=== PATIENT | female | born 1980 | race Caucasian/White ===

== ENCOUNTER → 2016-11-28 | Outpatient (CLI) | payer OTHER ==
[~2016-11-28] MED LIST: BENTYL20 MG DOB; KLONOPIN2 MG PO; PRILOSEC20 MG PO; RONDEC-DM SYRU120 ML PO
--- NOTE | ~2016-11-28 | MY29 ---
[facility] A Service of [facility] RADIOLOGY TEXT RESULTS PATIENT: RAHEL COFFEY LOCATION: [facility] : 82 UNIT #: [id number] AGE: [address]: Anat Schmidt MD SEX: F ORDER DR: [id number] [facility] [address] [place], [place] [address] [id number] O MR#: [id number] Acc #: [id number] NAME: RAHEL COFFEY : 1980 SEX: F STUDY DATE/TIME: 11/28/2016 13:05 UNIT: [facility] ROOM: STUDY DESCRIPTION: MY [facility] SCREENING W/ CAD BILAT Attending Physician: Anat Schmidt M.D. Referring Physician: Anat Schmidt M.D. Ordering Physician: Anat Schmidt M.D. Primary Care Physician: Anat Schmidt M.D. MEDICAL IMAGING REPORT This report is preliminary unless electronic signature is present EXAM Screening mammogram, 11/28. INDICATIONS 36-year-old with no personal history but a positive family history of breast cancer in her mother. No current complaints. FINDINGS Routine digital screening views of both breasts were obtained. Study is reviewed with an FDA-approved CAD device. This is a baseline study. Breast parenchyma shows scattered fibroglandular densities. No masses or suspicious microcalcifications are seen. Benign calcifications are present in both breasts. IMPRESSION Benign mammogram. Routine yearly screening recommended beginning at age 40 or sooner if clinically indicated. Patients over the age of 40 are entered into a reminder system with target due date for the next mammogram. BIRADS: 2 Benign finding. Dictated by... Giovanni Elias Jr., M.D. THIS IS AN ELECTRONICALLY VERIFIED REPORT Giovanni Elias Jr., M.D. at 11/29/2016 4:38 PM ETHAN/omero TD: 11/29/2016 07:14 JOB #: [id number] [facility] A Service of [facility] RADIOLOGY TEXT RESULTS PATIENT: RAHEL COFFEY LOCATION: [facility] #: [id number] : 82 UNIT #: [id number] AGE: [address]: Anat Schmidt MD SEX: F ORDER DR: MEDICAL IMAGING REPORT Page 1 of 1 COPY
== END | disposition home or self-care (01) ==
LOC: CWCC 12:00
DX: Z12.31 Encounter for screening mammogram for malignant neoplasm of breast (principal); Z80.3 Family history of malignant neoplasm of breast
CPT/HCPCS: G0202